=== PATIENT | female | born 1970 | race Caucasian/White ===

== ENCOUNTER 2024-08-19 14:26 | Emergency (ER) | payer OTHER ==
[2024-08-19 14:43] VITALS: RESP 18; TEMP 98.1
--- NOTE | 2024-08-19 15:43 | XR ---
EXAMINATION TYPE: XR hand complete RT DATE OF EXAM: 08/19/2024 3:35 PM CLINICAL INDICATION: Female, 54 years old with history of Right hand pain; COMPARISON: None TECHNIQUE: XR hand complete RT Frontal, lateral and oblique views were obtained. FINDINGS: Normal alignment of the visualized joints. No acute osseous pathology is identified. No e vidence of soft tissue swelling. No significant degeneration . Remote ulnar styloid process fracture. IMPRESSION: No acute osseous pathology. [facility], , 08/19/2024 3:41 PM
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
[2024-08-19] MEDS: KETOROLAC 15 MG/ML 1 ML VIAL IM STA (17:17)
[2024-08-19] MEDS: HYDROmorphone 0.5 MG/0.5 ML SYRINGE IM STA (17:17)
[2024-08-19] MEDS: ACET/COD 300 MG/30 MG STARTER PACK 6 TAB BTL PO STA (17:18)
[2024-08-19] MEDS: HYDROmorphone 0.5 MG/0.5 ML SYRINGE IVP STA (17:25)
[2024-08-19] MEDS: KETOROLAC 15 MG/ML 1 ML VIAL IVP STA (17:25)
[2024-08-19 17:52] VITALS: BP 142/96; PULSE 70
== END 2024-08-19 17:51 | disposition home or self-care (01) ==
LOC: EC 14:26
CPT/HCPCS: 70450; 70486; 71046; 72125; 93005; 96372; 99285